=== PATIENT | male | born 1990 | race Caucasian/White ===

== ENCOUNTER 2019-03-07 14:19 | Emergency (ER) | payer OTHER ==
[~2019-03-07] VITALS: Ht 180.3 cm; Wt 80.7 kg
[2019-03-07] MEDS ORDERED: MECLIZINE HCL25 MG PO (20:29)
== END 2019-03-07 20:47 | disposition home or self-care (01) ==
LOC: ER 14:19
DX: H81.13 Benign paroxysmal vertigo, bilateral (principal)